=== PATIENT | female | born 1940 | race Caucasian/White ===

== ENCOUNTER 2024-06-19 13:23 | Emergency (ER) | payer MEDICARE ==
[~2024-06-19] VITALS: Ht 142.2 cm; Wt 36.3 kg
== END 2024-06-19 15:58 | disposition home or self-care (01) ==
LOC: ER 13:23
DX: S51.811A Laceration without foreign body of right forearm, initial encounter (principal); S00.83XA Contusion of other part of head, initial encounter; X58.XXXA Exposure to other specified factors, initial encounter